=== PATIENT | male | born 1980 | race Caucasian/White ===

== ENCOUNTER 2018-07-19 06:47 | Observation (INO) ==
[2018-07-19] MEDS ORDERED: LIDOCAINE HCL 1% 20 ML VIAL ONE ×2 (08:14→10:24)
[2018-07-19] MEDS ORDERED: fentaNYL citrate 100 MCG/2 ML VIAL ONE ×2 (08:50→09:44)
[2018-07-19] MEDS ORDERED: MIDAZOLAM HCL 5 MG/ML 1 ML VIAL ONE ×2 (08:50→09:44)
--- NOTE | 2018-07-19 08:53 | History & Physical Bridge Note ---
Date of Service July 19, 2018 History & Physical Bridge Note I have examined the patient, reviewed the History & Physical and in the interval since the performance of the History & Physical I have noted the following changes of clinical significance: Occasional episodes of tachycardia.
--- NOTE | 2018-07-19 08:54 | Pre Anesthesia Assessment ---
Date of Service July 19, 2018 Pre Sedation Assessment Vital Signs Temp Pulse Resp BP Pulse Ox 07/19/18 08:04 37.5 C 78 18 146/80 H 97 Cardiovascular + regular rate Respiratory + respiratory effort normal Pre-Sedation Airway Assessment Smoking Status: Former smoker Hx Sleep Apnea: No Hx Difficult Intubation: No Short, Thick Neck: No Thyromental Distance: < 3.5 Finger Breadths Oral Cavity: + WNL Mallampati Class: III ASA: ASA2 NPO Status Date of Last Intake of Fluids: 07/18/18 Time of Last Intake of Fluids: 21:00 Date of Last Intake of Solid Food: 07/18/18 Time of Last Intake of Solid Foods: 21:00 Procedure Planning Contraindications for Sedation: none Current Medications Reviewed: Yes Notes The planned sedation has been discussed with the patient. Informed Consent was obtained. I have identified the patient, determined the appropriateness of sedation and have assessed the patient immediately prior to the procedure. All medicine(s) and interventions are by my order.
[2018-07-19] MEDS ORDERED: ISOPROTERENOL 200 MCG / 50ML D5W IV ONE (09:48)
[2018-07-19] MEDS ORDERED: HEPARIN SOD (PORCINE) 1000 UNIT/ML 10 ML VIAL ONE (10:21)
[2018-07-19] MEDS ORDERED: HEPARIN 25000 UNIT/500 ML D5W IV ONE (10:27)
[2018-07-19] MEDS ORDERED: ADENOSINE IV SOLN 3 MG/ML 2 ML VIAL IV ONE ×2 (11:01→11:04)
[2018-07-19] MEDS ORDERED: PROTAMINE SULFATE 10 MG/ML 5 ML VIAL ONE (11:13)
[2018-07-19] MEDS ORDERED: OXYCODONE HCL IR 5 MG TAB (IMMEDIATE RELEASE) PO PRN (11:41)
[2018-07-19] MEDS ORDERED: ONDANSETRON INJ 2 MG/ML 2 ML VIAL IV PRN (11:41)
[2018-07-19] MEDS ORDERED: ACETAMINOPHEN 325 MG TAB PO PRN (11:41)
--- NOTE | 2018-07-19 11:41 | Post Operative Brief Note ---
Cardiology Brief Post Op Date of Surgery July 19, 2018 Pre & Post Diagnosis Operation Date: 07/19/18 09:00 <No data on this case meets the specified criteria> Procedure EPS and ablation of left sided acessory pathway via retrograde aortic approach. Femoral arterial and venous access and RIJ access. 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 Successful ablation of the AP without inducible tachycardia at the conclusion of the case. Otherwise normal intracardiac conduction. Complications none Disposition Accompanied Patient To Recovery: No Disposition: PCU Overlapping Procedure I was immediately available: during the entire case.
--- NOTE | 2018-07-19 14:34 | Procedure Note ---
Procedure Note Date of Service July 19, 2018 Note Procedure performed: Ablation of supraventricular tachycardia, complete electrophysiologic testing including pacing from the left atrium via the coronary sinus, arrhythmia induction using program stimulation on and off isoproterenol, mapping of tachycardia sites using roving catheter, ultrasound- guided vascular access Staff geological scout: Mike Merlos MD Indication: The patient is a 38-year-old gentleman with a long history of palpitations easily terminated with deep breathing or other vagal maneuvers. He was noted on preoperative evaluation to have evidence of pre-excitation and based on his symptoms was referred for electrophysiologic testing and possible ablation today. The patient was informed of the risks benefits and alternatives to the intended procedure. He understood such which proceed. He is brought to the electrophysiology suite in a fasting state. Conscious sedation was administered per protocol and the patient was monitored electrocardiographically throughout today's procedure. The right groin and right neck areas were prepped and draped in the usual sterile fashion the right internal jugular vein was subsequently access using modified Seldinger technique under ultrasound guidance and a 6 Haitian venous sheath was placed at the site over guidewire. Right femoral vein was accessed 3 times using modified Seldinger technique and sheaths were placed over guidewires at this site. The sheaths were used to facilitate passage of the EP catheters to the respective chambers under fluoroscopic guidance. This included right ventricular, coronary sinus and his bundle catheters. The patient's baseline conduction system was characterized. This point standard pacing maneuvers were employed in order to induce an arrhythmia. Once the arrhythmia was induced the nature of the arrhythmia was characterized. At this point it was obvious that the patient had a left-sided accessory pathway. The fossa ovalis was probed for patency. However, there was no PFO. The right femoral artery was subsequently access using modified Selinger technique and a 7 Haitian sheath was placed at the site over guidewire. This sheath was used to facilitate passage of theablation catheter in a retrograde fashion to the left ventricle. The patient underwent systemic heparinization at this point. Tachycardia sites were then mapped along the mitral annulus. Radiofrequency ablation was performed until the tachycardia was no longer inducible. Subsequent to ablation the patient's baseline conduction intervals were again measured. Repeat electrophysiologic testing and arrhythmia induction was then performed on and off isoproterenol prior to conclusion of the case. The anticoagulation was subsequently reversed with protamine. At the conclusion of the procedure the sheaths and catheters were removed. Hemostasis was achieved at the access sites using manual pressure. The Patient tolerated the procedure well there were no immediate complications. Findings: Baseline intracardiac intervals Cycle length in the atrium 808 milliseconds Cycle length in the ventricle 812 millisecond NJ interval 63 milliseconds QRS duration 134 milliseconds QT interval 412 milliseconds Corrected QT interval 457 milliseconds AH interval 86 milliseconds HV interval 60 milliseconds Av Wenckebach occurred at 340 milliseconds Antegrade refractory period of the accessory pathway was 440 milliseconds Retrograde refractory period of the accessory pathway was 320 milliseconds It should be noted that retrograde activation was eccentric with earliest retrograde atrial activity occurring nearly simultaneously at the proximal his bundle and distal coronary sinus. The effective refractory period of the AV node was not determined as programmed stimulation from the atrium commonly resulted in a tachycardia. Atrial fibrillation was induced briefly with manipulation of the right atrial catheters. The conducted beats in atrial fibrillation were generally narrow complex in nature. Program stimulation from the atrium reliably induced a narrow complex tachycardia. Earliest retrograde atrial activation appeared to occur nearly simultaneously and the proximal his catheter and distal coronary sinus Ventricular entrainment of the tachycardia resulted in a long post pacing interval Tachycardia: The tachycardia cycle length was 310 milliseconds The VA time was 90 milliseconds Ablation: A standard 7 Haitian 4 millimeter radiofrequency ablation catheter was advanced in a retrograde fashion across the aortic valve into the left ventricle. The catheter was subsequently extended to the mitral annulus and tachycardia sites mapped. Radiofrequency lesions were place with good power and temperature. At the successful ablation site there was immediate loss of pre-excitation with radiofrequency application. Post ablation intervals: Cycle length in the atrium 624 milliseconds Cycle length in the ventricle 614 milliseconds NJ interval 144 milliseconds QRS duration 80 milliseconds QT interval 342 milliseconds Corrected QT interval 436 milliseconds AH interval 76 millisecond HV interval 50 milliseconds Programmed stimulation from the atrium revealed an atrial refractory period of 230 milliseconds AV node effective refractory period was less than 230 milliseconds The ventricular refractory period was 220 milliseconds There was no evidence of pre-excitation or retrograde accessory pathway conduction subsequent to ablation Adenosine was administered and pacing was performed both the antegrade and retrograde for directions with development of complete heart block and no evidence of accessory pathway conduction Programmed stimulation was performed subsequent to ablation on and off isoproterenol without induction of a tachycardia. 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
--- NOTE | 2018-07-19 16:35 | Discharge Summary ---
Date of Service July 19, 2018 Admission HPI Patient is a 38-year-old gentleman with a history WPW and associated palpitations. Based on the recurrent nature of his symptoms he was advised to consider electrophysiologic testing and possible ablation. Principal Diagnosis Principal Diagnosis WPW Discharge Exam The time of discharge the patient was ambulatory. Vital signs were normal. Evaluation of the jugular and femoral access sites did not reveal any evidence of bleeding or hematoma. There were no bruits on auscultation of the femoral access site Discharge Data Allergies Allergy/AdvReac Type Severity Reaction Status Date / Time lactose Allergy Intermediate severe gi Verified 06/21/18 10:48 problems clindamycin Allergy Unknown RASH ALL Verified 06/21/18 10:48 OVER Procedures Performed Operation Date: 07/19/18 09:00 Actual Procedures p EPS + Ablation for SVT Flutter(Not Applicable) - MD amelia Mccray LA Pacing (Add-On)(Not Applicable) - MD amelia Mccray Ultrasound Vascular Access(Not Applicable) - Shashank Merlos MD Hospital Course (1) WPW (Xekew-Xeugdirvv-Gjrwy syndrome): On the day of admission the patient underwent electrophysiologic testing which revealed inducible orthodromic AVRT. He was known to have manifest pre- excitation on baseline EKG. Mapping of his tachycardia suggested the presence of a left lateral accessory pathway. He did not have a patent foramina ovale in this was approached via a retrograde fashion employing right femoral arterial access. The accessory pathway was successfully mapped and radiofrequency lesions were applied with elimination of accessory pathway conduction. Please see the procedure report for full details. Subsequent to the ablation the patient was monitored on the shi for several hours. At the time of discharge she was ambulatory without evidence of bleeding or hematoma at the access sites. There were no complications. EKG obtained prior to discharge did not reveal any evidence of pre-excitation. Total Time Total Time Spent Total Time Spent (In Minutes): 10 Discharge Plan Discharge Items Patient Disposition: Home - Self-Care Reason For Visit: Allen Parkinson White Syndrome Discharge Diagnosis: WPW, s/p ablation Condition: Good Discharge Goals: Therapeutic intervention Activity: As commented below Activity Comment: No strenuous activity for 7 days Lifting: No more than 10 pounds Lifting Comment: For one week. Bathing: No limitations Bathing Comment: Do not soak access sites Sexual Activity: After one week Exercise Comment: None for 7 days Driving/Machine Use: Resume 1 day after discharge Non-emergency contact: Parole Supervisor Call non-emergency contact if: your wound pain has increased Follow-up/Referrals: Luis Enrique Azar [Primary Care Provider] - Diet: Regular Addtl Provider Instructions: Take aspirin 81mg by mouth daily for 2 weeks. May stop if this upsets your stomach Prescriptions: Continue buspirone 10 mg Tablet 10 mg PO HS PRN (Reason: SLEEP/ANXIETY) RF: 0 Stand-Alone Forms: Free Flow Power/Other Patient Handouts: Ablation Cardiac Dc Discharge Orders: Discharge Order (Routine); Ordered 07/19/18 Ordered By: Shashank Merlos Admission Data Admit Date/Time: 07/19/18 11:38 Attending Provider: Shashank Merlos Admit Provider: Shashank Merlos Primary Care Provider: Luis Enrique Azar Service: Telemetry Other Interventions: Discharge Summary Assessment (RN) Last Done: 07/19/18 16:22 Pending Studies at Discharge: No
== END 2018-07-19 16:42 | disposition home or self-care (01) ==
LOC: 2E 06:47 → ASU 06:47

== ENCOUNTER 2018-09-18 05:58 | Observation (INO) ==
--- NOTE | 2018-09-06 13:11 | Anesthesiology Consultation ---
Date of Service September 06, 2018 Assessment & Plan (1) Encounter for pre-operative examination: Per cardiology discharge summary 07/19/18: "On the day of admission the patient underwent electrophysiologic testing which revealed inducible orthodromic AVRT. He was known to have manifest pre-exc itation on baseline EKG. Mapping of his tachycardia suggested the presence of a left lateral accessory pathway. He did not have a patent foramina ovale in this was approached via a retrograde fashion employing right femoral arterial access. The accessory pathway was successfully mapped and radiofrequency lesions were applied with elimination of accessory pathway conduction. Please see the proc edure report for full details. Subsequent to the ablation the patient was monitored on the shi for several hours. At the time of discharge he was ambulatory without evidence of bleeding or hematoma at the access sites. There were no complications. EKG obtained prior to discharge did not reveal any evidence of pre-excitation." Chart Review Chart Review: Acceptable Risk for Surgery and Patient NOT seen in Pre Admission Testing History Surgery Operation Date: 09/18/18 07:45 Proposed Procedures p C5-C7 Anterior Cervical Discectomy and Fusion - Sharath Batres DO Height/Weight Height: 5 ft 6 in Weight: 80.7 kg Allergies Allergy/AdvReac Type Severity Reaction Status Date / Time lactose Allergy Intermediate severe gi Verified 08/20/18 13:57 problems clindamycin Allergy Unknown RASH ALL Verified 08/20/18 13:57 OVER Medications Home Medications Medication Instructions Recorded Confirmed Last Taken sertraline [Zoloft] 50 mg PO QAM 08/20/18 08/20/18 Unknown Past Medical History Medical History Anxiety Chronic back pain Degenerative disc disease Frannie Parkinson White pattern seen on electrocardiogram Found at [facility]. Pt initially scheduled for c-spine surgery 06/25. Pt evaluated by cardiology and cardiology gave recommendations for perioperative medical mgmt. Anesthesia did not recommend proceeding with elective surgery until after ablation. Now s/p radiofrequency ablation @ [facility] 07/19/18 Past Family History Family History Grandmother (Maternal) Family history of diabetes mellitus Grandfather (Maternal) Family history of diabetes mellitus Father Stroke, Onset Age: 50 NO RESIDUAL EFFECTS Past Surgical History Surgical History Fusion of spine LUMBAR H/O cardiac radiofrequency ablation For WPW, 07/19/18 History of surgery RIGHT HAND REPAIR, DONE AT [facility] [place] History of vasectomy History of wisdom tooth extraction Social History Smoking Status: Former smoker tobacco type: cigarettes and smokeless tobacco Smoking cigarettes per day: QUIT 5 YEAR AGO, +CURRENT TOBACCO USE Do You Dip or Chew Tobacco: Yes (2 CANS PER WEEK, ADVISED TO HOLD ON DOS.) Hx Alcohol Use: Yes Alcohol type: beer and other alcohol intake frequency: holidays/special occasions only Alcohol Intake Frequency Comment: OCC. SOCIAL DRINK Hx Substance Use: No substance use type: does not use Substance Use Type Other:: "CBD OIL" Testing Electrocardiogram Date: 07/19/18 Findings: + SB @ (56 with sinus arrhythmia) Otherwise normal EKG. Compared to EKG of 06/21/18, ventricular preexcitation is no longer present. Chest X-Ray Date: 06/21/18 Findings: + NAD Stress Test Date: 06/29/18 Type: exercise (EKG) No evidence of myocardial ischemia by EKG criteria at 97% MPHR and a 10.1 met workload. Baseline EKG was abnormal and consistent with Xhuvt-Sfhryfixt-Zmlnt syndrome. Delta wave disappeared and ST segments normalized at a heart rate of 133 bpm -- accessory pathway became refractory at this point. No exercise- induced chest pain dyspnea or arrhythmias. No ectopy was noted during the study. Good exercise tolerance. Laboratory Results Laboratory Tests 09/05/18 09/05/18 09/05/18 16:14 16:14 16:14 WBC 5.67 Hgb 15.0 Hct 43.4 Plt Count 260 PT 9.8 INR 1.0 Sodium 138 Potassium 3.6 Chloride 104 Carbon Dioxide 28 BUN 19 H Creatinine 1.18 Glucose 98
[2018-09-18] MEDS ORDERED: LR 15ML/HR IV SCH (06:00)
[2018-09-18] MEDS ORDERED: CeleBREX 200 MG CAP PO SCH (06:00)
[2018-09-18] MEDS ORDERED: ACETAMINOPHEN 500 MG TAB PO SCH (06:00)
[2018-09-18] MEDS ORDERED: CEFAZOLIN 1000MG 1,000 MG/7.5 ML SYR IV SCH (06:00)
[2018-09-18] MEDS ORDERED: GABAPENTIN 300 MG x 3 PO SCH (06:00)
[2018-09-18] MEDS ORDERED: CEFAZOLIN 2000MG 2,000 MG/15 ML SYR IV SCH (06:00)
[2018-09-18] MEDS ORDERED: MIDAZOLAM HCL 1 MG/ML 2ML VIAL ONE (06:40)
[2018-09-18] MEDS ORDERED: HYDROmorphone INJ 2 MG/ML SYR/VIAL ONE (06:40)
[2018-09-18] MEDS ORDERED: fentaNYL citrate 100 MCG/2 ML VIAL ONE ×2 (06:40→08:27)
[2018-09-18] MEDS ORDERED: KETAMINE HCL INJ 50 MG/ML 10 ML VIAL ONE (06:41)
[2018-09-18] MEDS ORDERED: BACITRACIN INJ 50,000 UNIT VIAL ONE (06:56)
[2018-09-18] MEDS ORDERED: HYDROmorphone INJ 2 MG/ML SYR/VIAL IV PRN (07:12)
[2018-09-18] MEDS ORDERED: ePHEDrine sulfate 50 MG/ML AMP IV PRN (07:12)
[2018-09-18] MEDS ORDERED: ONDANSETRON INJ 2 MG/ML 2 ML VIAL IV PRN ×2 (07:12→12:08)
[2018-09-18] MEDS ORDERED: DEXAMETHASONE SOD INJ 4 MG/ML VIAL IV PRN (07:12)
[2018-09-18] MEDS ORDERED: ATROPINE SULFATE 0.1 MG/ML 10ML SYR IV PRN (07:12)
[2018-09-18] MEDS ORDERED: KETOROLAC 30 MG/ML VIAL IV PRN (07:12)
--- NOTE | 2018-09-18 07:28 | History & Physical Bridge Note ---
Date of Service September 18, 2018 History & Physical Bridge Note I have examined the patient, reviewed the History & Physical and in the interval since the performance of the History & Physical I have noted the following changes of clinical significance: no changes noted
--- NOTE | 2018-09-18 07:31 | History & Physical Report ---
Date of Service September 18, 2018 Assessment & Plan (1) Cervical stenosis of spinal canal: Anterior cervical discectomy and fusion C4-C6 Present on Admission?: Yes History of Present Illness Chief Complaint: Neck and arm pain Primary Care Provider: Luis Enrique Azar This is a 38-year-old male presents with chronic persistent neck and arm pain. After failing extensive course of nonoperative care is here for surgical intervention. Allergies Allergy/AdvReac Type Severity Reaction Status Date / Time lactose Allergy Intermediate severe gi Verified 08/20/18 13:57 problems clindamycin Allergy Unknown RASH ALL Verified 08/20/18 13:57 OVER Home Medications Home Medications Medication Instructions Recorded Confirmed Type sertraline [Zoloft] 50 mg PO QAM 08/20/18 09/18/18 History Past Med/Surg History Medical History Anxiety Chronic back pain Degenerative disc disease Frannie Parkinson White pattern seen on electrocardiogram Found at [facility]. Pt initially scheduled for c-spine surgery 06/25. Pt evaluated by cardiology and cardiology gave recommendations for perioperative medical mgmt. Anesthesia did not recommend proceeding with elective surgery until after ablation. Now s/p radiofrequency ablation @ [facility] 07/19/18 Surgical History Fusion of spine LUMBAR H/O cardiac radiofrequency ablation For WPW, 07/19/18 History of surgery RIGHT HAND REPAIR, DONE [place] [facility] [place] History of vasectomy History of wisdom tooth extraction Family History Grandmother (Maternal) Family history of diabetes mellitus Grandfather (Maternal) Family history of diabetes mellitus Father Stroke, Onset Age: 50 NO RESIDUAL EFFECTS Social History Preferred Language: Ecuadorean Communication Ability: Effective Electronics Computer Mechanic Required: No Beliefs That Will Affect Care: None Current Living Situation: Spouse and Family Other Information That Helps Us Care for You: No Feels Safe at Home: Yes Safety Concerns: Feels Safe At This Time Smoking Status: Former smoker Hx Alcohol Use: Yes Hx Substance Use: No Physical Exam Vital Signs (Past 24 Hours): Last Vital Signs Temp 36.8 C 09/18/18 06:20 Pulse 85 09/18/18 06:20 Resp 18 09/18/18 06:20 BP 139/96 09/18/18 06:20 Pulse Ox 94 09/18/18 06:20 Results & Data Medications Administered Acetaminophen (Tylenol) 1,000 mg PO PREOP MERT Stop: 09/18/18 18:00 Last Admin: 09/18/18 06:51 Dose: 1,000 mg Documented by: [id number] Celecoxib (Celebrex) 200 mg PO PREOP MERT Stop: 09/18/18 18:00 Last Admin: 09/18/18 06:52 Dose: 200 mg Documented by: [id number] Gabapentin (Neurontin) 900 mg PO PREOP MERT Stop: 09/18/18 18:00 Last Admin: 09/18/18 06:52 Dose: 900 mg Documented by: [id number] Lactated Ringer's (Lr) 1,000 mls @ 15 mls/hr IV .Q24H MERT Stop: 09/19/18 05:59 Last Admin: 09/18/18 06:53 Dose: 15 mls/hr Documented by: [id number]
[2018-09-18] MEDS ORDERED: NEOSTIGMINE METHYLSULFATE 1 MG/ML 10ML VIAL ONE (08:04)
[2018-09-18] MEDS ORDERED: GLYCOPYRROLATE 0.2 MG/ML VIAL ONE (08:04)
[2018-09-18] MEDS ORDERED: PROPOFOL IV EMULSION 10 MG/ML 20 ML VIAL IV ONE (08:04)
[2018-09-18] MEDS ORDERED: LIDOCAINE HCL 2% 2 ML VIAL/AMP(20MG/ML) INFIL ONE (08:04)
[2018-09-18] MEDS ORDERED: DEXAMETHASONE SOD INJ 4 MG/ML VIAL ONE (08:04)
[2018-09-18] MEDS ORDERED: ONDANSETRON INJ 2 MG/ML 2 ML VIAL ONE (08:04)
[2018-09-18] MEDS ORDERED: ROCURONIUM BROMIDE 10 MG/ML 5 ML VIAL ONE (08:04)
[2018-09-18] MEDS ORDERED: FLOSEAL HEMOSTATIC MATRIX 10ML TOP ONE (08:24)
--- NOTE | 2018-09-18 09:22 | Operative Report ---
Post Operative Report Pre & Post Diagnosis Operation Date: 09/18/18 07:45 Pre-Op Diagnosis: Cervical spinal stenosis with radiculopathy Post-Op Diagnosis: Same Procedure Operation Date: 09/18/18 07:45 Actual Procedures #1 anterior cervical discectomy bilateral foraminotomies C4-5 C5-6. #2 anterior cervical arthrodesis C4-5 C5-6. #3 placement of cortical allograft filled with DBM 7 mm in height at C5-6 and C4-5. #4 application shine plate and screws from C4-C6. Surgeon Sharath Batres, Continuous Pillowcase Cutter None Estimated Blood Loss 50 Findings Consistent with Post-Op Diagnosis Specimens None Description of Procedure Patient was met with preoperatively case discussed all questions addressed. After informed consent obtained patient was taken to the operative suite underwent intubation and placed in supine position in the head Graham head kiln operator. All bony prominences well-padded eyes inspected to ensure no external pressure placed upon them. This point the anterior cervical spine was prepped and draped in a normal sterile fashion. The assistance of fluoroscopy identified the C5 vertebral body and a transverse incision was placed along the right anterior aspect of the cervical spine aligns region. Sharp dissection with the assistance of bipolar elective cautery was performed down to and exposing the anterior cervical spine from C4-C5 6. Self-retaining retractors placed. I verified my position with fluoroscopy. Then performed a complete discectomy of C4-5 out to the uncovertebral joints bilaterally. Brimson distracting pins were utilized. Removed all posterior annular fibers longitudinal ligament bilateral foraminotomies performed. Endplates were then burred to subcortical bleeding bone and a 7 mm cortical allograft with DBM tamped in position. Then proceeded to see 5 6. Again complete discectomy performed up to the uncovertebral joints bilaterally. Brimson distracting pins also utilized. Removed all posterior annular fibers longitudinal ligament and bilateral foraminotomies performed. Endplates burred to subcortical bleeding bone and again a 7 mm cortical allograft filled with DBM tamped in position. Distraction apparatus was removed. All anterior osteophytes produce smooth cortical surface and a shine plate and screws applied with the assistance of fluoroscopy. The incision was then copiously irrigated explored to ensure no damage to surrounding structures remaining bleeding. 10 round MONIK drain inserted. The incision was then closed with 2 Vicryl in the fashion of 4 Monocryl for final closure Steri-Strip sterile dressings placed. Patient will continue to PACU stable disc. I attest to the content of the Intraoperative Record and any orders documented therein. Any exceptions are noted below.
--- NOTE | 2018-09-18 09:38 | Fluoroscopy Report ---
FL cervical 2-3V CLINICAL HISTORY: ACDF C5-C5czrxta COMPARISON STUDY: None FLUOROSCOPY TIME: 15 seconds NUMBER OF FLUOROSCOPIC IMAGES: 3 FINDINGS: Findings consistent with an anterior fusion of the low cervical spine. Disc spaces are pres ent. Alignment is anatomic. IMPRESSION: Anatomic alignment post anterior low cervical fusion The above report was generated using voice recognition software. It may contain grammatical, syntax or spelling errors. Electronically signed by: Andre Harris M.D. 09/18/2018 9:36 AM
[2018-09-18] MEDS: fentaNYL citrate 100 MCG/2 ML VIAL IV PRN ×2 (10:11→10:22)
[2018-09-18] MEDS ORDERED: LABETALOL HCL IV 5 MG/ML 20ML IV ONE (10:32)
[2018-09-18] MEDS: LABETALOL HCL IV 5 MG/ML 20ML IV PRN ×2 (10:35→10:47)
--- NOTE | 2018-09-18 11:33 | Anesthesiology Progress Note ---
Date of Service September 18, 2018 Anesthesia Post Procedure Vital Signs Vital Signs: Temp Pulse Resp BP Pulse Ox 09/18/18 11:20 37.2 C 77 12 137/78 97 09/18/18 11:10 60 12 130/87 95 09/18/18 11:00 69 17 141/88 H 96 09/18/18 10:50 79 21 150/100 H 96 09/18/18 10:40 74 12 146/96 H 97 09/18/18 10:30 96 H 16 184/116 H 98 09/18/18 10:20 96 H 20 148/116 H 96 09/18/18 10:10 71 12 151/108 H 97 09/18/18 10:00 108 H 16 153/123 H 96 09/18/18 09:50 79 11 L 141/95 H 96 09/18/18 09:42 37.0 C 82 10 L 140/98 96 09/18/18 06:20 36.8 C 85 18 139/96 94 Pain Intensity Bilateral Posterior Lateral Neck: Pain Intensity: 6 Notes Mental Status: alert / awake / arousable and participated in evaluation Patient Amnestic to Procedure: Yes Nausea / Vomiting: adequately controlled Pain: adequately controlled Airway Patency, RR, SpO2: stable & adequate BP & HR: stable & adequate Hydration State: stable & adequate Anesthetic Complications: no major complications apparent
[2018-09-18] MEDS ORDERED: NALOXONE HCL 0.4 MG/1 ML VIAL/CARP IV PRN (12:08)
[2018-09-18] MEDS ORDERED: RACEPINEPHRINE 2.25% NEBU SOLN 0.5 ML VIAL INH PRN (12:08)
[2018-09-18] MEDS ORDERED: DO NOT ADMINISTER PNEUMOCOCCAL VACCINE PRN (12:08)
[2018-09-18] MEDS ORDERED: DO NOT ADMINISTER FLU VACCINE PRN (12:08)
[2018-09-18] MEDS ORDERED: LACTATED RINGER'S 1,000 ML IV SCH (12:08)
[2018-09-18] MEDS ORDERED: DEXAMETHASONE SOD PHOSPHATE 8 MG in SYRINGE 0 ML IV PRN (12:08)
[2018-09-18] MEDS ORDERED: OXYCODONE HCL IR 5 MG TAB (IMMEDIATE RELEASE) PO PRN (12:08)
[2018-09-18] MEDS ORDERED: DiphenhydrAMINE HCL 50 MG/ML VIAL IV PRN (12:08)
[2018-09-18] MEDS ORDERED: ACETAMINOPHEN 1,000 MG/100 ML VIAL IV PRN (12:08)
[2018-09-18] MEDS ORDERED: LORazepam 0.5 MG/1 ML VIAL IV PRN (12:08)
[2018-09-18] MEDS ORDERED: MAGNESIUM HYDROXIDE SUSP 30 ML UDC PO PRN (12:08)
[2018-09-18] MEDS: HYDROmorphone INJ 0.5 MG/0.5 ML SYR IV PRN ×2 (12:38→19:55)
[2018-09-18] MEDS ORDERED: SCOPOLAMINE 1.5 MG TDSY TD SCH (13:00)
[2018-09-18] MEDS: CHECK SCOPOLAMINE PATCH PLACEMENT SCH (15:31)
[2018-09-18] MEDS: CEFAZOLIN 2000MG 2,000 MG/15 ML SYR IV SCH (15:43)
[2018-09-18] MEDS: DOCUSATE SODIUM 100 MG CAP PO SCH (20:58)
[2018-09-18] MEDS: LORazepam 0.5 MG TAB PO PRN (21:10)
[2018-09-19] MEDS: CEFAZOLIN 2000MG 2,000 MG/15 ML SYR IV SCH ×2 (00:23→07:33)
[2018-09-19] MEDS: CHECK SCOPOLAMINE PATCH PLACEMENT SCH ×2 (00:24→07:33)
[2018-09-19] MEDS: HYDROmorphone INJ 0.5 MG/0.5 ML SYR IV PRN (01:21)
[2018-09-19] MEDS ORDERED: CEFAZOLIN 1000MG 1,000 MG/7.5 ML SYR IV SCH (06:00)
[2018-09-19] MEDS: DOCUSATE SODIUM 100 MG CAP PO SCH (07:33)
[2018-09-19] MEDS: LORazepam 0.5 MG TAB PO PRN (07:38)
--- NOTE | 2018-09-19 08:28 | Anesthesiology Progress Note ---
Date of Service September 19, 2018 Anesthesia Post Procedure Vital Signs Vital Signs: Temp Pulse Pulse Pulse Resp BP Pulse Ox 09/19/18 08:05 09/19/18 07:30 73 14 97 09/19/18 07:03 36.4 C L 71 19 142/85 H 96 09/19/18 04:59 36.6 C 64 131/73 98 09/19/18 03:34 65 16 98 09/19/18 03:03 36.4 C L 86 18 132/79 93 09/19/18 01:11 36.5 C 95 H 17 120/75 95 09/18/18 23:30 09/18/18 23:03 36.5 C 97 H 18 143/81 H 95 09/18/18 23:01 74 16 95 09/18/18 21:01 36.7 C 99 H 24 152/91 H 93 09/18/18 20:17 74 18 94 09/18/18 19:21 36.5 C 74 20 144/85 H 92 09/18/18 16:58 36.8 C 91 H 16 148/87 H 94 09/18/18 15:41 112 H 20 93 09/18/18 15:20 09/18/18 15:09 36.4 C L 78 16 134/78 92 09/18/18 14:39 91 H 16 139/81 93 09/18/18 13:59 115 H 21 146/81 H 91 09/18/18 12:44 93 H 16 137/78 93 09/18/18 12:22 94 H 16 95 09/18/18 12:14 83 12 133/87 96 09/18/18 11:45 36.7 C 85 16 142/90 H 97 09/18/18 11:20 37.2 C 77 12 137/78 97 09/18/18 11:10 60 12 130/87 95 09/18/18 11:00 69 17 141/88 H 96 09/18/18 10:50 79 21 150/100 H 96 09/18/18 10:40 74 12 146/96 H 97 09/18/18 10:30 96 H 16 184/116 H 98 09/18/18 10:20 96 H 20 148/116 H 96 09/18/18 10:10 71 12 151/108 H 97 09/18/18 10:00 108 H 16 153/123 H 96 09/18/18 09:50 79 11 L 141/95 H 96 09/18/18 09:42 37.0 C 82 10 L 140/98 96 Pulse Ox 09/19/18 08:05 97 09/19/18 07:30 09/19/18 07:03 09/19/18 04:59 09/19/18 03:34 09/19/18 03:03 09/19/18 01:11 09/18/18 23:30 94 09/18/18 23:03 09/18/18 23:01 09/18/18 21:01 09/18/18 20:17 09/18/18 19:21 09/18/18 16:58 09/18/18 15:41 09/18/18 15:20 92 09/18/18 15:09 09/18/18 14:39 09/18/18 13:59 09/18/18 12:44 09/18/18 12:22 09/18/18 12:14 09/18/18 11:45 97 09/18/18 11:20 09/18/18 11:10 09/18/18 11:00 09/18/18 10:50 09/18/18 10:40 09/18/18 10:30 09/18/18 10:20 09/18/18 10:10 09/18/18 10:00 09/18/18 09:50 09/18/18 09:42 Pain Intensity Bilateral Posterior Lateral Neck: Pain Intensity: 0 Notes Mental Status: alert / awake / arousable and participated in evaluation Patient Amnestic to Procedure: Yes Nausea / Vomiting: adequately controlled Pain: adequately controlled Airway Patency, RR, SpO2: stable & adequate BP & HR: stable & adequate Hydration State: stable & adequate Anesthetic Complications: Pt Satisfied with anesthetic care
[2018-09-19] MEDS ORDERED: SERTRALINE HCL 50 MG TABLET PO SCH (09:00)
--- NOTE | 2018-09-19 13:55 | Discharge Summary ---
Date of Service September 19, 2018 Admission HPI Per Admitting Provider This is a 38-year-old male presents with chronic persistent neck and arm pain. After failing extensive course of nonoperative care is here for surgical intervention. Principal Diagnosis Cervical spinal stenosis with radiculopathy Discharge Data Allergies Allergy/AdvReac Type Severity Reaction Status Date / Time lactose Allergy Intermediate severe gi Verified 08/20/18 13:57 problems clindamycin Allergy Unknown RASH ALL Verified 08/20/18 13:57 OVER Procedures Performed Operation Date: 09/18/18 07:45 Actual Procedures p C4-C6 Anterior Cervical Discectomy and Fusion(Not Applicable) - Sharath Batres DO Ordered Studies 09/18/18 07:45 FL cervical 2-3V Routine FL fluoroscopy <1hr Routine Hospital Course (1) Cervical stenosis of spinal canal: Patient underwent anterior discectomy and fusion tolerated as well as taken the orthopedic floor postoperative. Postop day #1 he was up and ambulate the arm symptoms markedly improved MONIK drain decreasing appropriately. Subsequently discharged home. Discharge orders and instructions can be found chart for further review. Total Time Total Time Spent Total Time Spent (In Minutes): Not applicable Discharge Plan Discharge Items Patient Disposition: Home - Self-Care Reason For Visit: Spinal Stenosis, Cervical Region Discharge Diagnosis: cervical stenosis Discharge Goals: Decrease discomfort Activity: Per 'Additional Instructions' section Non-emergency contact: Primary Care Provider Call non-emergency contact if: you have any medication questions Follow-up/Referrals: Luis Enrique Azar [Primary Care Provider] - Diet: Regular Addtl Provider Instructions: ACTIVITY RECOMMENDATIONS: SELF CARE INSTRUCTIONS AFTER CERVICAL FUSIONS 1. No smoking. Smoking drastically decreases the chance of a solid fusion. 2. No bending, lifting more than 5 pounds, or twisting (roll like a log when turning in bed). 3. You may shower 3 days after surgery. Thoroughly dry wound. Do not soak in the tub. 4. Cervical collar: Must be worn at all times including sleeping. You may remove the brace only to bath, eat and if you are sitting in a recliner. 5. Please walk as much as you can for exercise. Gradually increase the distance that you walk as your endurance increases. SPECIAL CARE INSTRUCTIONS: VERY IMPORTANT TO READ AND REVIEW A. Do not take any anti-inflammatory medications (i.e. Indocin, Advil, Aspirin, Naprosyn, Aleve, Motrin, etc.) as these may inhibit the chance of a solid fusion. Tylenol is okay to take. B. Your surgical incision has been closed with a cosmetic suture under the skin that will dissolve in about 6 weeks. In 14 days, you can use a pair of clean scissors and cut the suture that is left outside of the skin at the ends of your incision. C. Complications are uncommon, but please contact us if you have any signs or symptoms of: 1. wound infection (fever higher than 102.5 degrees F, redness, separation of wound, drainage, or increasing pain from the incision) 2. blood clots in legs (pain, swelling, redness and warmth in legs) 3. urinary tract infection (fever higher than 102.5 degrees, burning upon urination or increased frequency of urination) 4. nerve problems (inability to walk on your toes or heels, numbness, loss of bowel or bladder control) 5. any other symptoms that concern you. D. Please call the office at if you have any concerns or questions about your operation or recovery. MANAGING PAIN AFTER SPINAL SURGERY 1. Narcotic medication is intended for short-term use and will be provided for surgical pain. Surgical pain usually lasts for a period of 4-6 weeks. Narcotic medication includes Percocet, Vicodin, Darvocet, Tylenol #3 or Lortab. 2. Longer-term pain is more appropriately treated with non-narcotic medication such as Tylenol ES. 3. Muscle spasm is not appropriately treated with narcotics. Muscle relaxers such as Soma, Flexeril or Skelaxin can be used along with Tylenol ES. 4. Remember that we all live with some "aches and pains". This is not unusual or uncommon after an injury or as we get older. 5. We will provide appropriate medication within the normal guidelines of their prescribed use. We will also be very cautious and aware of potential abuse and extended duration of patients' medication needs. 6. Please allow 2-3 days to process refills. Prescriptions will not be mailed but must be picked up at the office. FOLLOW UP VISIT: Keep your scheduled follow-up appointment. Any questions, please call the office at . Prescriptions: New oxycodone 5 mg Tablet 5 mg PO Q4H PRN (Reason: Pain) Qty: 20 RF: 0 Continued sertraline [Zoloft] 50 mg Tablet 50 mg PO QAM RF: 0 Stand-Alone Forms: [employer] [facility] [address] Discharge Orders: Discharge Order (Routine); Ordered 09/19/18 Ordered By: Sharath Batres Admission Data Admit Date/Time: 09/18/18 09:25 Attending Provider: Sharath Batres Admit Provider: Sharath Batres Primary Care Provider: Luis Enrique Azar Service: Surgical Services Other Interventions: Discharge Summary Assessment (RN) Last Done: 09/19/18 10:21 DC Date/Time DO NOT enter until pt leaves facility: 09/19/18 11:31
[2018-09-20] MEDS ORDERED: BISACODYL 5 MG TABEC PO PRN (09:25)
[2018-09-20] MEDS ORDERED: POLYETHYLENE (MIRALAX) 17 GM PACK PO PRN (09:25)
== END 2018-09-19 11:31 | disposition home or self-care (01) ==
LOC: ASU 05:58 → 3E 05:58